=== PATIENT | female | born 1975 | race Hispanic/Latino ===

== ENCOUNTER 2017-09-19 10:59 | Day surgery (SDC) | payer BC ==
[~2017-09-19] VITALS: Ht 154.9 cm; Wt 90.7 kg
[~2017-09-19 10:59] MED LIST: ERGO500014 PO; SODIUM CHLORIDE 0.9% 1000ML 1,000 ML IV ONE
[2017-09-19 11:27] VITALS: BP 112/64
[2017-09-19] MEDS ORDERED: ONDA4TAB10 PO (12:01)
[2017-09-19] MEDS ORDERED: FENTANYL CITRATE PF 50 MCG/1 ML 2ML VIAL ONE (12:08)
== END 2017-09-19 12:49 | disposition home or self-care (01) ==
LOC: DAH 10:59
PROVIDERS: ATTEND Internal Medicine Gastroenterology
DX: K21.9 Gastro-esophageal reflux disease without esophagitis (principal); G43.909 Migraine, unspecified, not intractable, without status migrainosus; D64.9 Anemia, unspecified; Z83.3 Family history of diabetes mellitus; Z88.1 Allergy status to other antibiotic agents; E66.9 Obesity, unspecified
CPT/HCPCS: 36415; 43235; 84703; A4606; J3010; J7030

== ENCOUNTER 2017-12-23 22:49 | Emergency (ER) | payer BC ==
[~2017-12-23 22:49] MED LIST changes: +ONDA4TAB10 PO; -SODIUM CHLORIDE 0.9% 1000ML 1,000 ML IV ONE
[2017-12-23 23:13] LABS: BASOPHILS % (AUTO) 0.4 % (0.0-5.0); EOSINOPHILS % (AUTO) 2.1 % (0.0-8.0); HEMATOCRIT 36.7 % (36-48); LYMPHOCYTES % (AUTO) 26.6 % (21.0-51.0); MEAN CORPUSCULAR HGB CONC 32.6 g/dL (32.0-36.0); MONOCYTES % (AUTO) 7.3 % (3.0-13.0); NEUTROPHILS % (AUTO) 63.6 % (40.0-77.0); PLATELET COUNT (AUTO) 301 K/uL (130-400); RED BLOOD CELL COUNT(AUTO) 4.42 MIL/uL (4.00-5.50); WHITE BLOOD COUNT (AUTO) 13.6 K/uL (4.8-10.8)
[2017-12-23 23:15] LABS: APPEARANCE,URINE Clear (CLEAR); BILIRUBIN,URINE Negative (NEGATIVE); COLOR,URINE Yellow (YELLOW); GLUCOSE, URINE (UA) Negative (NEGATIVE); KETONES,URINE Negative (NEGATIVE); LEUKOCYTE ESTERASE ,URINE Negative (NEGATIVE); NITRATE,URINE Negative (NEGATIVE); OCCULT BLOOD,URINE Negative (NEGATIVE); PH,URINE 7.5 (5.0-8.0); PROTEIN,URINE Negative (NEGATIVE); UROBILINOGEN,URINE 0.2 mg/dL (0.2-1.0)
[2017-12-23 23:26] LABS: CREATININE 0.7 mg/dL (0.5-1.5); POTASSIUM 3.5 mmol/L (3.5-5.1)
[2017-12-23 23:31] LABS: ALBUMIN 3.3 g/dL (3.5-5.0); BILIRUBIN,TOTAL 0.2 mg/dL (0.2-1.0); TOTAL PROTEIN, SERUM 7.8 g/dL (6.0-8.3)
[2017-12-23] MEDS ORDERED: KETOROLAC TROMETHAMINE 30MG/ML ONE (23:42)
[2017-12-24] MEDS ORDERED: LEVOFLOXACIN 500 MG TABLET ONE (00:39)
== END 2017-12-24 01:08 | disposition home or self-care (01) ==
LOC: EDH 22:49
DX: K52.9 Noninfective gastroenteritis and colitis, unspecified (principal); R10.10 Upper abdominal pain, unspecified; Z88.1 Allergy status to other antibiotic agents
CPT/HCPCS: 36415; 74176; 80053; 81003; 81025; 82150; 83690; 85025; 96374; 99285; J1885

== ENCOUNTER 2023-11-29 18:30 | Emergency (ER) | payer BC, OTHER ==
[~2023-11-29] VITALS: Ht 157.5 cm; Wt 93.0 kg
[2023-11-29 19:09] LABS: RAPID GROUP A STREP negative (NEGATIVE); SARS-CoV-2, RNA, NAAT NEGATIVE SARS CoV-2 (NEGATIVE)
[2023-11-29 19:19] LABS: INFLUENZA TYPE A Negative For Type A (NEGATIVE); INFLUENZA TYPE B Negative For Type B (NEGATIVE)
[2023-11-29] MEDS: DEXAMETHASONE SOD PHOSPHATE 4 MG/ML 1ML VIAL IM ONE (19:23)
[2023-11-29 20:03] VITALS: PULSE 91; RESP 18
[2023-11-29] MEDS: BUDESONIDE 0.5 MG/2 ML INH IH SCH (20:03)
[2023-11-29] MEDS ORDERED: METH4TAB3 PO (20:28)
[2023-11-29] MEDS ORDERED: BUDE90AE IH (20:28)
[2023-11-29 20:30] VITALS: BP 121/86; PULSE 90; RESP 18; O2SAT 99
[2023-11-30] MEDS ORDERED: BUDESONIDE 0.5 MG/2 ML INH IH SCH (06:00)
== END 2023-11-29 20:35 | disposition home or self-care (01) ==
LOC: EDH 18:30
DX: R05.3 Chronic cough (principal); I10 Essential (primary) hypertension; E11.9 Type 2 diabetes mellitus without complications; E78.00 Pure hypercholesterolemia, unspecified; F32.A Depression, unspecified; Z20.822 Contact with and (suspected) exposure to COVID-19; Z79.899 Other long term (current) drug therapy; Z98.890 Other specified postprocedural states; Z88.2 Allergy status to sulfonamides; Z88.8 Allergy status to other drugs, medicaments and biological substances
CPT/HCPCS: 99284; 71045; 87635; 87880; 87804 ×2; 96372; 94640; J1100

== ENCOUNTER 2025-03-12 00:40 | Emergency (ER) | payer SELFPAY ==
[~2025-03-12] VITALS: Ht 157.5 cm; Wt 90.7 kg
[~2025-03-12 00:40] MED LIST changes: +BUDE90AE3 IH; +METH4TAB3 PO; +METR-172 PO; +ONDA-243 PO; -ONDA4TAB10 PO
--- NOTE | 2025-03-12 01:05 | NUR ---
PT CARE ASSUMED AT THIS TIME
--- NOTE | 2025-03-12 01:13 | ERN ---
ED Note History of Present Illness Stated Complaint: RT HIP PAIN Chief Complaint: Hip Pain/Injury Time Seen by MD: 00:46 Time Seen by Midlevel: 00:55 Dictation: Ms. De La Paz is a 49 year old female with history of type 2 diabetes, hypertension, hyperlipidemia, GERD, depression, and obesity who presented to the emergency department this morning for evaluation of back pain. She reports several days of suprapubic pain, frequent urination, and right low back pain. She states today pain worsened to the right hip and radiating down thigh; rates 10/10. Pain with worse with position change or ambulation. She denies having f ever, chills, shortness of breath, cough, chest pain, palpitations, edema, abdominal pain, nausea, vomiting, hematemesis, constipation, diarrhea, melena, hematochezia, headache, dizziness, or focal weakness/paresthesia Allergies: Coded Allergies: sulfamethoxazole (Unverified Allergy, Unknown, 09/18/17) trimethoprim (Unverified Allergy, Unknown, 09/18/17) Home Meds Active Scripts Ondansetron (Ondansetron Odt) 4 Mg Tab.rapdis, 4 MG PO Q6HPRN PRN for nausea, #16 TAB 0 Refills Prov:SHERMAN HOOPER MD 04/18/24 Metronidazole (Metronidazole) 500 Mg Tablet, 500 MG PO Q8H for 5 Days, #15 TAB Prov:SHERMAN HOOPER MD 04/18/24 Budesonide (Pulmicort Flexhaler) 90 Mcg Aer.pow.ba, 90 MCG IH BID for 10 Days, #1 UNIT 2 puffs by mouth twice a day for 10 days. Prov:CHRISTINA LUCAS NP 11/29/23 Methylprednisolone (Medrol) 4 Mg Tab.ds.pk, 4 MG PO AD, #1 UNIT Prov:CHRISTINA LUCAS [employer] 11/29/23 Reported Medications Ondansetron (Ondansetron Odt) 4 Mg Tab.rapdis, 4 MG PO AD PRN for NAUSEA, TAB 09/19/17 Ergocalciferol (Vitamin D2) (Vitamin D2) 50,000 Unit Capsule, 19472 UNIT PO QWEEK, CAP 09/18/17 Past Medical History Past Medical History: Depression, Diabetes-Type II, High Cholesterol, Hypertension Additional Past Medical Hx: GASTRITIS Surgical History: PSYCH History: no pertinent psych hx Social History: Negative, Lives with family History: Not Applicable LMP: February 15, 2025 RN Note Reviewed/Agreed w/PFSH: Yes Review of System Dictation REVIEW OF SYSTEMS: CONSTITUTIONAL: Patient denies fevers, chills, sweats and weight changes. EYES: Patient denies any visual symptoms. EARS, NOSE, AND THROAT: No difficulties with hearing. No symptoms of rhinitis or sore throat. CARDIOVASCULAR: Patient denies chest pains, palpitations, orthopnea and paroxysmal nocturnal dyspnea. RESPIRATORY: No dyspnea on exertion, no wheezing or cough. GI: No nausea, vomiting, diarrhea, constipation, abdominal pain, hematochezia or melena. : No urinary hesitancy or dribbling. No abnormal urethral discharge. Reports suprapubic pain, right low back pain, and frequent urination MUSCULOSKELETAL: Reports low back pain, right hip pain NEUROLOGIC: No chronic headaches, no seizures. Patient denies numbness, tingling or weakness. PSYCHIATRIC: Patient denies problems with mood disturbance. No problems with anxiety. ENDOCRINE: No excessive urination or excessive thirst. DERMATOLOGIC: Patient denies any rashes or skin changes. Initial Vital Sign VS Vital Signs Date Time Temp Pulse Resp B/P (MAP) Pulse Ox O2 Delivery O2 Flow Rate FiO2 03/12/25 00:44 97.7 102 20 131/77 99 Room Air 03/12/25 01:12 0 21 Physical Exam Dictation Vital signs: Reviewed. Afebrile. Constitutional: No acute distress. Non-toxic appearing. Accompanied by daughter. Head/Face: Normocephalic, atraumatic. Eyes: Periorbital areas with no swelling, redness, or edema. Lids and lashes are normal. Conjunctival injection is absent. Sclera anicteric. Pupils equal, round, reactive to light. ENT: Pinnas intact and no signs of trauma or erythema. Ear canals clear and no discharge. TMs no erythema. No nasal discharge or bleeding noted. Oropharynx with no exudate, redness, swelling, masses, exudates, or evidence of obstruction. Uvula midline. Mucous membranes moist. Neck: Trachea midline, no masses palpated, and no cervical lymphadenopathy. No swelling. Supple, full range of motion. Chest/Axilla: No tenderness, no crepitus, no paradoxical movement, no r etractions. Cardiovascular: Regular rate, regular rhythm, no murmur, no gallops. Symmetric pulses. No peripheral edema. Respiratory: Respirations even and unlabored. Lung sounds clear; no wheezes, rales or rhonchi. Room air spo2 98%. Gastrointestinal: Inspection is normal. No distention is appreciated. Bowel sounds are normal. No mass or organomegaly . There is no tenderness. No rebound. No rigidity. No voluntary or involuntary guarding. No Melchor's sign. : + suprapubic tenderness. Negative CVA tenderness bilaterally. Has not yet voided. Neurological: Normal speech, gross motor function intact, gross sensory function intact. No focal weakness/Paresthesia. Musculoskeletal/Extremities: All extremities have full range of motion. There is tenderness upon palpation right lower back. No spinal deformity or step offs. + straight leg test; pain when leg raised 45 degrees with reproduction of radicular pain radiating down the posterior leg to calf. Symmetric pulses. Integumentary: Intact. Skin is normal color, warm and dry. Cap refill less than 2 seconds. Results (Laboratory/Radiology) Laboratory/Radiology Laboratory Tests Test 03/12/25 01:05 Urine Color LIGHT-YELLOW (YELLOW) Urine Appearance CLEAR (CLEAR) Urine pH 6.0 (5.0-8.0) Urine Specific [place] 1.016 (1.001-1.031) Urine Protein NEGATIVE mg/dL (NEGATIVE) Urine Glucose (UA) NEGATIVE mg/dL (NEGATIVE) Urine Ketones NEGATIVE mg/dL (NEGATIVE) Urine Occult Blood NEGATIVE (NEGATIVE) Urine Nitrate NEGATIVE (NEGATIVE) Urine Bilirubin NEGATIVE mg/dL (NEGATIVE) Urine Urobilinogen 0.2 mg/dL (0.2-1.0) Urine Leukocyte Esterase NEGATIVE Lien/uL Urine HCG, Qualitative NEGATIVE (NEGATIVE) ED Course ED Course Orders Procedure Category Date Status Time Urinalysis Profile LAB 03/12/25 Complete 00:58 ,Urine Test LAB 03/12/25 Complete 00:58 Lumbar Spine 2-3vws RAD 03/12/25 Taken 01:11 Diazepam 5 Mg/Ml 2 Ml PHA 03/12/25 Complete Syg (Valium 5 Mg/M 01:30 Ketorolac PHA 03/12/25 Complete Tromethamine 15mg/Ml 01:30 Saline Lock Iv CPOE 03/12/25 Transmitted 01:12 Current Medications Medications (Trade) Dose Ordered Sig/Mark Route PRN Reason Start Time Stop Time Status Last Admin Dose Admin Diazepam (VALium 5 MG/ML 2 ML SYG) 5 mg ONCE ONCE IVP 03/12/25 01:30 03/12/25 01:31 DC 03/12/25 01:26 Ketorolac Tromethamine (toRADol) 15 mg ONCE ONCE IV 03/12/25 01:30 03/12/25 01:31 DC 03/12/25 01:25 Vital Signs Date Time Temp Pulse Resp B/P (MAP) Pulse Ox O2 Delivery O2 Flow Rate FiO2 03/12/25 01:12 98.2 102 17 138/83 98 Room Air* 0 21 03/12/25 00:44 97.7 102 20 131/77 99 Room Air Uneventful ED course. Initially pain to the right low back/hip 07/08. She denies saddle anesthesia or incontinence bowel/bladder. + straight leg test at 40-45 degrees. She reports suprapubic pain and frequent urination. UA negative. HCG negative. She received doses Toradol, prednisone, and Valium and endorses marked decrease in discomfort. Medical Decision Making MDM MDM: Differential diagnosis: UTI, renal stone, back strain, lumbar radiculopathy Rationale: Tests considered and ordered secondary to shared decision making include: Lab, x-ray Previous outside records reviewed: Old ER visits. Risk of complication and/or morbidity or mortality of patient management: None Medications-Per medication reconciliation Need for hospitalization: Patient does not meet criteria for hospitalization. Need for emergency major/minor surgery: No There are no social concerns with this patient. Prescription drug management: Ibuprofen, prednisone, Flexeril Prescriptions will include symptomatic care Patient's prior external medical records from other ER visits were reviewed by me as indicated. Prior testing and results from previous visits were reviewed. Prior tests were taken into account with medical decision making and resource utilization, independent historian/historians were used to obtain complete medical history. I independently interpreted the test that were performed, results were reviewed by me and considered findings on radiology if ordered. Medical management and examination interpretation discussions were had by me with other qualified healthcare professionals as indicated for the patient's care. DX & DISP Disposition: Discharge Departure Impression: Primary Impression: Lumbar pain Additional Impression: Lumbar radicular pain Condition: Stable Scripts Cyclobenzaprine HCl (Cyclobenzaprine HCl) 5 Mg Tablet 10 MG PO q 12 hours PRN for muscle spasm, #10 TAB 0 Refills Prov: FIDENCIOVA GOLDMAN SUKI 03/12/25 Ibuprofen (Ibuprofen 200 mg Tablet) 200 Mg Tablet 600 MG PO q8 hours PRN for eran, #12 TAB 0 Refills Prov: [facility] SUKI 03/12/25 Prednisone (Prednisone) 5 Mg Tablet 40 MG PO DAILYBKFST for 4 Days, #4 TAB 0 Refills Prov: [facility] SUKI 03/12/25 Additional Instructions: You have symptoms sciatica, which has pain radiating are in the leg due to irritation of the nerve in the lower back. A short course of steroids has been prescribed to reduce inflammation and nerve irritation. Take prednisone 40 mg daily in the morning with food x4 more days. Take ibuprofen as directed. May take Flexeril every 12 hours as needed for muscle spasms. Stay active with light walking and stretching. Avoid prolonged bed rest. Avoid heavy lifting, twisting, or bending at the waist. Use proper posture and body mechanics to reduce strain on your lower back. Use ice for the 1st 48 hours to reduce inflammation, then heat for muscle relaxation. Elevate legs with pillows under the knees when lying down to reduce pressure on the spine. Follow up with your primary care provider early next week. You may benefit from physical therapy as well as additional imaging/MRI. Return to the ER if you experience new or worsening leg weakness or numbness, loss of bladder/bowel control, severe pain not relieved by medication, or fever. Referrals: NONE (PCP) Time of Disposition: 02:25 [facility] NP Mar 12, 2025 01:13
[2025-03-12 01:21] LABS: APPEARANCE,URINE CLEAR (CLEAR); BILIRUBIN,URINE NEGATIVE (NEGATIVE); COLOR,URINE LIGHT-YELLOW (YELLOW); GLUCOSE, URINE (UA) NEGATIVE (NEGATIVE); KETONES,URINE NEGATIVE (NEGATIVE); LEUKOCYTE ESTERASE ,URINE NEGATIVE Leu/uL (NEGATIVE); NITRATE,URINE NEGATIVE (NEGATIVE); OCCULT BLOOD,URINE NEGATIVE (NEGATIVE); PROTEIN,URINE NEGATIVE (NEGATIVE); UROBILINOGEN,URINE 0.2 mg/dL (0.2-1.0)
[2025-03-12 01:22] LABS: ADD UA MICROSCOPIC NO
[2025-03-12 01:23] LABS: HCG,QUALITATIVE URINE NEGATIVE (NEGATIVE)
[2025-03-12] MEDS: ketOROlac 15MG/ML VIAL (15MG/ML) IV ONE (01:25)
[2025-03-12] MEDS: diazePAM 5 MG/ML 2 ML SYG IVP ONE (01:26)
[2025-03-12] MEDS ORDERED: PRED5TAB PO (02:28)
[2025-03-12] MEDS ORDERED: IBUP-2784 PO (02:28)
[2025-03-12] MEDS ORDERED: CYCL5TAB3 PO (02:28)
[2025-03-12] MEDS: predniSONE 20 MG TABLET PO ONE (02:37)
[2025-03-12 02:41] VITALS: BP 110/63; PULSE 89; RESP 15; TEMP 98.3; O2SAT 98
--- NOTE | 2025-03-12 06:14 | HMCIMG ---
LUMBAR SPINE 2-3VWS HISTORY: Low back pain COMPARISON: None FINDINGS: 3 images of the lumbar spine were obtained. There is straightening of normal lordotic curvature which may be related to muscle spasm or positioning. No loss of vertebral height is seen. No fracture or dislocation is seen. IMPRESSION: 1. No fracture is seen.
== END 2025-03-12 02:52 | disposition home or self-care (01) ==
LOC: EDH 00:40
DX: M51.17 Intervertebral disc disorders with radiculopathy, lumbosacral region (principal); E11.9 Type 2 diabetes mellitus without complications; E78.00 Pure hypercholesterolemia, unspecified; I10 Essential (primary) hypertension; Z79.51 Long term (current) use of inhaled steroids; Z88.1 Allergy status to other antibiotic agents; Z88.2 Allergy status to sulfonamides
CPT/HCPCS: 99284; 96374; 96375; 81003; 81025; 72100; J1885; J3360